=== PATIENT | female | born 1925 | race Two or more races ===

== ENCOUNTER → 2017-07-25 | Outpatient (CLI) | payer MEDICARE ==
--- NOTE | 2017-07-25 12:55 | FL ---
Barium swallow HISTORY: Difficulty swallowing 1 minute 29 seconds fluoroscopy time, 109 obtained images, patient received 1 ounce EZ paque, 2 ounce s easy HD The cervical spine shows extensive facet arthropathy change. Swallowing mechanism is remarkable for a filling defect and courses obliquely on the frontal view which is indeterminate. This may be related to the epiglottis is noted on the lateral exam. There is however prominence of the lower cervical an terior osteophytes causing some minimal impression on the posterior aspect of the esophagus. No gastr oesophageal reflux was noted. On delayed images some tertiary esophageal contractions were noted. Seferino e pooling of contrast is present in the upper thoracic esophagus. No evident hiatal hernia. IMPRESSION: Filling defect noted on the frontal exam is indeterminate within the pharynx and could be related to the epiglottis although it shows an asymmetric appearance. Consider direct visualization. Degenerative disc disease. Additional findings above.
== END | disposition home or self-care (01) ==
LOC: RADFLMAIN 08:54
PROVIDERS: ATTEND Internal Medicine Gastroenterology
DX: R93.8 Abnormal findings on diagnostic imaging of other specified body structures (principal); R13.10 Dysphagia, unspecified
CPT/HCPCS: 74220